=== PATIENT | male | born 1960 | race Caucasian/White ===

== ENCOUNTER 2017-04-07 20:26 | Emergency (ER) | payer SELFPAY ==
[~2017-04-07] VITALS: Ht 172.7 cm; Wt 125.3 kg
[2017-04-07 20:38] VITALS: TEMP 37.1; O2SAT 93; Ht 172.7 cm; Wt 125.3 kg
[2017-04-07] MEDS: DOXYCYCLINE HYCLATE 100 MG CAP PO ONE (21:05)
[2017-04-07] MEDS ORDERED: BUPR-79 PO (21:13)
[2017-04-07] MEDS ORDERED: CLON0.1T12 PO (21:14)
[2017-04-07 21:18] VITALS: PULSE 86; O2SAT 96
[2017-04-07] MEDS: ALBUT/IPRATROP 3MG/0.5MG NEB 3 ML VIAL INH ONE (21:18)
--- NOTE | 2017-04-07 21:43 | EMERGENCY ROOM VISIT NOTE ---
History Report prepared by Yaneth: Heather Chadwick Under the Supervision of: Dr. Markus Delgado M.D. First contact with patient: 20:52 Chief Complaint: SHORTNESS OF BREATH Stated Complaint: SOB Nursing Triage Summary: patient to ED via ALS from [facility] for SOB Patient states "I've been sick for a couple weeks, they gave me an abx, but I'm not getting better. Today I developed a sharp pain in my back, between my shoulder blades." hx COPD History of Present Illness The patient is a 57 year old male who presents to the Emergency Room with complaints of persistent SOB starting several weeks ago. The patient presents to the ED by EMS. He has been feeling sick for the past 2 few weeks. He finished a 10 day course of amoxicillin yesterday which did not help. He has been using inhalers and CPAP at home. Today he developed pain at his right shoulder blade. He describes the pain as stabbing. He has some right rib pain. He has a history of COPD and hypertension. He states that he is an alcoholic. Source of History: patient Onset: several weeks ago Position: other (global) Quality: other (SOB) Timing: other (persistent) Modifying Factors (Relieving): other (inhaler, CPAP) Note: Pt reports right shoulder blade pain, right rib pain. Review of Systems See HPI for pertinent positives & negatives. A total of 10 systems reviewed and were otherwise negative. Past Medical & Surgical Medical Problems: (1) COPD (chronic obstructive pulmonary disease) (2) Hypertension Family History No pertinent family history stated. Social History Smoking Status: Current Every Day Smoker Alcohol Use: heavy Marital Status: single Current/Historical Medications Scheduled Bupropion (Wellbutrin Sr), 150 MG PO BID Clonidine Hcl (Catapres), 1 TAB PO QPM Doxycycline Monohydrate (Monodox), 100 MG PO BID Allergies Uncoded Allergies: ANXIETY MEDS (Adverse Reaction, Severe, "BECOMES ENRAGED", 04/07/17) COUNSELOR FROM [facility]POR[facility] PT BECOMES "DANGEROUSLY ENRAGED" WHEN GIVEN ANXIETY MEDS. STERIODS (Adverse Reaction, Severe, "BECOMES ENRAGED", 04/07/17) [facility] PT BECOMES "DANGEROUSLY ENRAGED" WHEN GIVEN STERIODS. Physical Exam Vital Signs Date Time Temp Pulse Resp B/P (MAP) Pulse Ox O2 Delivery O2 Flow Rate FiO2 04/07/17 22:32 98 18 129/92 97 Room Air 10.0 Nebulizer 04/07/17 21:18 86 18 96 Room Air 04/07/17 21:05 91 22 154/103 96 Room Air 04/07/17 20:41 88 04/07/17 20:38 93 Room Air 04/07/17 20:38 93 Nasal Cannula 04/07/17 20:38 37.1 60 25 171/111 95 Room Air Physical Exam GENERAL: Patient is a healthy-appearing well-nourished male HEAD: Normocephalic atraumatic EYES: Ocular movements intact pupils equal and react to light OROPHARYNX mucous membranes are moist no exudates present no erythema or edema present NECK: Supple no nuchal rigidity CHEST: Good equal expansion LUNGS: Bilateral wheezing. CARDIAC: Normal S1 and S2 ABDOMEN: Soft nontender no guarding BACK: No CVA tenderness EXTREMITIES: No pain upon palpation normal muscle strength in all groups no clubbing cyanosis or edema NEURO: Patient is following commands and answering questions appropriately. Alert and oriented x3 Cranial Nerves 2-12 grossly intact Medical Decision & Procedures ER Provider Diagnostic Interpretation: X-ray results as stated below per interpretation by me and the radiologist: CHEST ONE VIEW PORTABLE CLINICAL HISTORY: 57 years-old Male presenting with Pt c/o b/l wheezing. TECHNIQUE: Portable upright AP view of the chest was obtained. COMPARISON: None. FINDINGS: Cardiomediastinal silhouette normal. Partial obscuration of the left hemidiaphragm due to left basilar opacity. Small left pleural effusion may be present. No pneumothorax. Right lung and pleural space clear. Osseous structures normal. Upper abdomen normal. IMPRESSION: 1. Left basilar opacity and possible small left pleural effusion. This may represent atelectasis, although underlying infection is difficult to exclude. Dedicated PA and lateral radiographs of the chest may better demonstrate the possible presence of pleural fluid. Electronically signed by: Nithin Scales M.D. 04/07/2017 10:03 PM Dictated Date/Time: 04/07/2017 10:02 PM Medications Administered Medications (Trade) Dose Ordered Sig/Janet Route Start Time Stop Time Status Last Admin Dose Admin Albuterol/ Ipratropium (Duoneb) 12 ml ONE ONCE INH 04/07/17 21:00 04/07/17 21:02 DC 04/07/17 21:18 12 ML Doxycycline Hyclate (Vibramycin Cap) 100 mg ONE ONCE PO 04/07/17 21:00 04/07/17 21:02 DC 04/07/17 21:05 100 MG Albuterol (Ventolin Hfa Inhaler) 2 puffs NOW STAT INH 04/07/17 23:34 04/07/17 23:35 DC 04/07/17 23:46 60 PUFFS ECG Indication: SOB/dyspnea Rate (beats per minute): 90 Rhythm: normal sinus Findings: no acute ischemic change, no ectopy ED Course 2052: Past medical records reviewed. The patient was evaluated in room B5. A complete history and physical examination was performed. 2100: Vibramycin Cap 100 mg PO, Duoneb 12 ml INH. 2229: Upon reexamination the patient is resting comfortably. I discussed results and treatment plan with the patient. He verbalizes agreement and understanding. The patient is ready for discharge. Medical Decision Differential diagnosis: Etiologies such as infections, reactive airway disease, pneumonia, pneumothorax , COPD, CHF, cardiac ischemia, pulmonary embolism, musculoskeletal, gastrointestinal, as well as others were entertained. This is a 57-year-old male who presents emergency department complaining of bilateral wheezing. I recommended that the patient receive an IV so he could have laboratory work checked as well as a CAT scan however the patient is refusing all this. He did consent to a chest x-ray. He was also given an hour- long breathing treatment along with an albuterol inhaler. His chest x-rays concerning for a pneumonia so I will start the patient on doxycycline. The patient was discussed with [facility] who agreed to take him back. Medication Reconcilliation Current Medication List: was personally reviewed by me Blood Pressure Screening Patient's blood pressure: Elevated blood pressure Blood pressure disposition: Referred to PCP Impression Primary Impression: Pneumonia Scribe Attestation The scribe's documentation has been prepared under my direction and personally reviewed by me in its entirety. I confirm that the note above accurately reflects all work, treatment, procedures, and medical decision making performed by me. Departure Information Dispostion Home / Self-Care Prescriptions Doxycycline Monohydrate (Monodox) 100 Mg Cap 100 MG PO BID for 10 Days, #20 CAP Prov: Markus Delgado MD 04/07/17 Referrals Marilou Donahue M.D. No Doctor, Assigned Forms HOME CARE DOCUMENTATION FORM, IMPORTANT VISIT INFORMATION Patient Instructions My [facility], Pneumonia (Bacterial) - [facility] Additional Instructions Follow up with DR Donahue's office Use inhaler twice every 6 hours You have been examined and treated today on an emergency basis only. This is not a substitute for, or an effort to provide, complete comprehensive medical care. It is impossible to recognize and treat all injuries or illnesses in a single emergency department visit. It is therefore important that you follow up closely with your PCP. Call as soon as possible for an appointment. Thank you for your time and consideration. I look forward to speaking with you again soon. Please don't hesitate to call us if you have any questions. Problem Qualifiers Primary Impression: Pneumonia Pneumonia type: due to unspecified organism Laterality: unspecified laterality Lung location: unspecified part of lung Qualified Codes: J18.9 - Pneumonia, unspecified organism
--- NOTE | 2017-04-07 22:05 | DIAGNOSTIC IMAGING REPORT ---
CHEST ONE VIEW PORTABLE CLINICAL HISTORY: 57 years-old Male presenting with Pt c/o b/l wheezing. TECHNIQUE: Portable upright AP view of the chest was obtained. COMPARISON: None. FINDINGS: Cardiomediastinal silhouette normal. Partial obscuration of the left hemidiaphragm due to left basilar opacity. Small left pleural effusion may be present. No pneumothorax. Right lung and pleural space clear. Osseous structures normal. Upper abdomen normal. IMPRESSION: 1. Left basilar opacity and possible small left pleural effusion. This may represent atelectasis, although underlying infection is difficult to exclude. Dedicated PA and lateral radiographs of the chest may better demonstrate the possible presence of pleural fluid. Electronically signed by: Nithin Scales M.D. 04/07/2017 10:03 PM Dictated Date/Time: 04/07/2017 10:02 PM
[2017-04-07] MEDS ORDERED: DOXY100C76 PO (23:29)
[2017-04-07] MEDS: ALBUTEROL HFA 8 GM INHALER INH STA (23:46)
[2017-04-08 00:48] VITALS: BP 138/64; PULSE 99; O2SAT 95
== END 2017-04-08 00:50 | disposition home or self-care (01) ==
LOC: C.EDB 20:33
DX: J18.9 Pneumonia, unspecified organism (principal); I10 Essential (primary) hypertension; J44.9 Chronic obstructive pulmonary disease, unspecified; F17.200 Nicotine dependence, unspecified, uncomplicated; Z79.899 Other long term (current) drug therapy; Z88.8 Allergy status to other drugs, medicaments and biological substances